=== PATIENT | female | born 1970 | race Hispanic/Latino ===

== ENCOUNTER 2016-07-20 19:46 | Emergency (ER) | payer SELFPAY ==
[~2016-07-20] VITALS: Ht 165.1 cm; Wt 72.6 kg
--- NOTE | 2016-07-20 20:07 | ED Cough/URI ---
General Chief Complaint: Cough/Cold/Flu Symptoms Stated Complaint: SORE THROAT, COUGH,HEADACHE Source: patient Exam Limitations: no limitations History of Present Illness Time seen by provider: 20:06 Initial Comments To ER with rhinorrhea and sore throat for 5 days. Starting yesterday she developed a productive cough, headache, nausea. Timing/Duration: week, getting worse Severity/Quality: productive cough Associated Symptoms: cough Allergies and Home Medications Allergies Coded Allergies: No Known Drug Allergies (Unverified , 07/20/16) Home Medications Azithromycin 250 Mg Tablet, 250 MG PO DAILY, #4 Prescribed by: FALGUNI AMBRIZ on 07/20/162018 D-Methorphan Hb/P-Epd HCl/Bpm 118 Ml Syrup, 5 ML PO Q6H PRN for COUGH, #120 Prescribed by: FALGUNI AMBRIZ on 07/20/162018 Constitutional: see HPI, malaise EENTM: nose congestion, see HPI Respiratory: see HPI, cough Genitourinary: no symptoms reported Musculoskeletal: no symptoms reported Skin: no symptoms reported Psychiatric/Neurological: No Symptoms Reported Past [id number]-Ycisas Hx Patient Social History Recent Foreign Travel: No Contact w/Someone Who Travel: No Physical Exam Vital Signs Vital Sign - Last 12Hours Capillary Refill : General Appearance: WD/WN, no apparent distress Eyes: Bilateral Eye EOMI, Bilateral Eye Normal Inspection, Bilateral Eye PERRL HEENT: PERRL/EOMI, normal ENT inspection, pharyngeal erythema Neck: non-tender, full range of motion Respiratory: lungs clear, normal breath sounds, no respiratory distress, no accessory muscle use Cardiovascular: no murmur, tachycardia Gastrointestinal: normal bowel sounds, non tender, soft Neurologic/Psychiatric: alert, normal mood/affect, oriented x 3 Skin: normal color, warm/dry Progress/Results/Core Measures Results/Orders My Orders Orders - FALGUNI AMBRIZ APRN Chest Pa/Lat (2 View) (07/20/16 20:05) Ondansetron Oral Dissolve Tab (Zofran (07/20/16 20:15) Acetaminophen/Codeine Tablet (Tylenol W/ (07/20/16 20:15) Ibuprofen Tablet (Motrin Tablet) (07/20/16 20:15) Dexamethasone Pf Injection (Decadron Pf (07/20/16 20:30) Azithromycin Tablet (Zithromax Tablet) (07/21/16 09:00) Azithromycin Tablet (Zithromax Tablet) (07/20/16 20:20) Medications Given in ED Current Medications Medications Dose Ordered Sig/Alexis Route Start Time Stop Time Status Last Admin Dose Admin Acetaminophen/ Codeine Phosphate 1 tab ONCE ONCE PO 07/20/16 20:15 07/20/16 20:16 DC 07/20/16 20:16 1 TAB Dexamethasone Sodium Phosphate 10 mg ONCE ONCE IM 07/20/16 20:30 07/20/16 20:31 DC 07/20/16 20:24 10 MG Ibuprofen 800 mg ONCE ONCE PO 07/20/16 20:15 07/20/16 20:16 DC 07/20/16 20:16 800 MG Ondansetron HCl 4 mg ONCE ONCE PO 07/20/16 20:15 07/20/16 20:16 DC 07/20/16 20:16 4 MG Vital Signs/I&O Vital Sign - Last 12Hours 07/20/16 07/20/16 20:05 20:05 Temp 98.1 Pulse 115 Resp 20 B/P (MAP) 171/114 Pulse Ox 96 O2 Delivery Room Air Room Air Departure Impression Impression: Primary Impression: Upper respiratory infection Disposition: HOME, SELF-CARE Condition: Stable Departure-Patient Inst. Decision time for Depature: 20:18 Referrals: NO,LOCAL PHYSICIAN (PCP) Primary Care Physician Patient Instructions: Acute Bronchitis, Adult (DC) Add. Discharge Instructions: 1. Medication as directed 2. See your doctor next week 3. Return to ER for any worsening All discharge instructions reviewed with patient and/or family. Voiced understanding. Scripts Azithromycin (Azithromycin) 250 Mg Tablet 250 MG PO DAILY, #4 TAB Prov: FALGUNI AMBRIZ APRN 07/20/16 D-Methorphan Hb/P-Epd HCl/Bpm (Bromfed Dm Cough Syrup) 118 Ml Syrup 5 ML PO Q6H Y for COUGH, #120 ML Prov: FALGUNI AMBRIZ APRN 07/20/16 FALGUNI AMBRIZ APRN July 20, 2016 20:07
[2016-07-20] MEDS ORDERED: ONDANSETRON 4 MG (ZOFRAN) ORAL DISSOLVE TAB PO ONE (20:15)
[2016-07-20] MEDS ORDERED: APAP 300 MG/CODEINE 30 MG (TYLENOL #3) TAB PO ONE (20:15)
[2016-07-20] MEDS ORDERED: IBUPROFEN 800 MG (MOTRIN) TAB PO ONE (20:15)
--- NOTE | 2016-07-20 20:17 | Diagnostic Imaging Report ---
INDICATION: Headache, sore throat, cough and congestion. PA and views of the chest were obtained. FINDINGS: The heart size, mediastinal configuration, and pulmonary vascularity are within normal limits. There is no pleural effusion, pneumothorax, or pneumonia. The osseous structures are unremarkable. IMPRESSION: No acute cardiopulmonary abnormality. Dictated by: Dictated on workstation # [id number]
[2016-07-20] MEDS ORDERED: D-ME118S33 PO (20:19)
[2016-07-20] MEDS ORDERED: AZIT250T5 PO (20:19)
[2016-07-20] MEDS ORDERED: AZITHROMYCIN 250 MG TAB (ZITHROMAX) PO ONE (20:20)
[2016-07-20] MEDS ORDERED: DEXAMETHASONE PF 10 MG/ML (DECADRON) VIAL IM ONE (20:30)
[2016-07-20 20:35] VITALS: BP 171/114
[2016-07-21] MEDS ORDERED: AZITHROMYCIN 250 MG TAB (ZITHROMAX) PO SCH (09:00)
== END 2016-07-20 20:30 | disposition home or self-care (01) ==
LOC: ER 19:50
DX: J06.9 Acute upper respiratory infection, unspecified (principal)
CPT/HCPCS: 71020; 96372; 99282